=== PATIENT | female | born 1945 ===

== ENCOUNTER 2017-04-04 06:33 | Day surgery (SDC) | payer MEDICARE, OTHER ==
[2017-04-04] MEDS ORDERED: BALANCED SALT IRRIG SOLN COMB1 500 ML, GENTAMICIN SULFATE INJ 4 MG, EPINEPHRINE-PF 1:10... IO ONE ×3 (07:00)
[2017-04-04] MEDS ORDERED: CIPROFLOXACIN 0.3% OPHT DROP 2.5 ML BOTTLE ONE (07:02)
[2017-04-04] MEDS ORDERED: FLURBIPROFEN 0.03% OPHT DROP 2.5 ML BOTTLE ONE (07:02)
[2017-04-04] MEDS ORDERED: TROPICAMIDE 1% OPHT DROP 3 ML BOTTLE ONE ×2 (07:02→10:33)
[2017-04-04] MEDS ORDERED: PHENYLEPHRINE 2.5% OPHT DROP 2 ML BOTTLE ONE (07:03)
[2017-04-04] MEDS ORDERED: CYCLOPENTOLATE 1% OPHT DROP 2 ML BOTTLE ONE (07:03)
[2017-04-04] MEDS ORDERED: NEO/POLYMYX B/DEXAME OPHT OINT 3.5 GM TUBE ONE (07:54)
[2017-04-04] MEDS ORDERED: TIMOLOL MALEATE 0.5% OPHT DROP 5 ML BOTTLE ONE (07:54)
[2017-04-04] MEDS ORDERED: TETRACAINE HCL 0.5% OPHT DROP 2 ML BOTTLE ONE (07:54)
[2017-04-04] MEDS ORDERED: MOXIFLOXACIN HCL 3 ML OPHT DROPS ONE (07:54)
[2017-04-04] MEDS ORDERED: LIDOCAINE-MPF 2% 5 ML VIAL ONE (07:54)
[2017-04-04] MEDS ORDERED: LIDOCAINE HCL-MPF 1% 5 ML VIAL ONE (07:55)
[2017-04-04] MEDS ORDERED: BUPIVACAINE PF 0.5% 30 ML VIAL ONE (07:55)
[2017-04-04] MEDS ORDERED: HYALURONATE SODIUM 8.5 MG/0.85 ML DISP.SYRIN ONE (07:55)
[2017-04-04] MEDS ORDERED: HYALURONIDASE,OVINE 200 UNITS/ML VIAL ONE (07:55)
[2017-04-04] MEDS ORDERED: ACETYLCHOLINE CHLORIDE 1% OPHT 1 EA KIT ONE (07:55)
[2017-04-04] MEDS ORDERED: EPINEPHRINE 1 MG/1 ML AMP ONE (07:55)
[2017-04-04] MEDS ORDERED: BALANCED SALT IRRIG SOLN COMB2 15 ML IRRIG.SOLN ONE (07:55)
[2017-04-04] MEDS ORDERED: HYALURONATE SODIUM 12.8 MG/0.8 ML DISP.SYRIN ONE ×2 (07:56→09:11)
[2017-04-04] MEDS ORDERED: TRYPAN BLUE 0.5 ML DISP.SYRIN ONE (08:27)
[2017-04-04] MEDS ORDERED: FENTANYL CITRATE 100 MCG/2 ML AMPUL ONE (08:30)
[2017-04-04] MEDS ORDERED: BALANCED SALT IRRIG SOLN COMB1 0 ML ONE (09:11)
[2017-04-04] MEDS ORDERED: ACETAMINOPHEN 325 MG TABLET ONE (10:22)
== END 2017-04-04 10:45 | disposition home or self-care (01) ==
LOC: DS 06:33
PROVIDERS: ATTEND Ophthalmology
DX: H26.9 Unspecified cataract (principal); I48.0 Paroxysmal atrial fibrillation; M19.90 Unspecified osteoarthritis, unspecified site; I35.1 Nonrheumatic aortic (valve) insufficiency; E78.5 Hyperlipidemia, unspecified; I50.32 Chronic diastolic (congestive) heart failure
CPT/HCPCS: A4663; J0171; J1580; J3010; J3471; J3490; J7120; J7321; J8499; Q9968; V2632

== ENCOUNTER 2017-07-04 06:38 | Day surgery (SDC) | payer MEDICARE, OTHER ==
[2017-07-04] MEDS ORDERED: ONDANSETRON 4 MG/2 ML VIAL IV ONE (06:39)
[2017-07-04] MEDS ORDERED: FLURBIPROFEN 0.03% OPHT DROP 2.5 ML BOTTLE ONE (06:43)
[2017-07-04] MEDS ORDERED: TROPICAMIDE 1% OPHT DROP 3 ML BOTTLE ONE (06:44)
[2017-07-04] MEDS ORDERED: CYCLOPENTOLATE 1% OPHT DROP 2 ML BOTTLE ONE (06:44)
[2017-07-04] MEDS ORDERED: PHENYLEPHRINE 2.5% OPHT DROP 2 ML BOTTLE ONE (06:44)
[2017-07-04] MEDS ORDERED: CIPROFLOXACIN 0.3% OPHT DROP 2.5 ML BOTTLE ONE (06:44)
[2017-07-04] MEDS ORDERED: MOXIFLOXACIN HCL 3 ML OPHT DROPS ONE (06:57)
[2017-07-04] MEDS ORDERED: NEO/POLYMYX B/DEXAME OPHT OINT 3.5 GM TUBE ONE (06:58)
[2017-07-04] MEDS ORDERED: TETRACAINE HCL 0.5% OPHT DROP 2 ML BOTTLE ONE (06:58)
[2017-07-04] MEDS ORDERED: TIMOLOL MALEATE 0.5% OPHT DROP 5 ML BOTTLE ONE (06:58)
[2017-07-04] MEDS ORDERED: LIDOCAINE-MPF 2% 5 ML VIAL ONE (06:58)
[2017-07-04] MEDS ORDERED: HYALURONATE SODIUM 12.8 MG/0.8 ML DISP.SYRIN ONE (06:59)
[2017-07-04] MEDS ORDERED: HYALURONIDASE,OVINE 200 UNITS/ML VIAL ONE (06:59)
[2017-07-04] MEDS ORDERED: BUPIVACAINE PF 0.5% 30 ML VIAL ONE (06:59)
[2017-07-04] MEDS ORDERED: ACETYLCHOLINE CHLORIDE 1% OPHT 1 EA KIT ONE (06:59)
[2017-07-04] MEDS ORDERED: BALANCED SALT IRRIG SOLN COMB2 15 ML IRRIG.SOLN ONE (06:59)
[2017-07-04] MEDS ORDERED: HYALURONATE SODIUM 8.5 MG/0.85 ML DISP.SYRIN ONE (06:59)
[2017-07-04] MEDS ORDERED: BALANCED SALT IRRIG SOLN COMB1 500 ML, EPINEPHRINE-PF 1:1000 0.5 MG IO ONE ×2 (07:00)
[2017-07-04] MEDS ORDERED: TRYPAN BLUE 0.5 ML DISP.SYRIN ONE (08:10)
[2017-07-04] MEDS ORDERED: FENTANYL CITRATE 100 MCG/2 ML AMPUL ONE ×2 (08:19→08:42)
[2017-07-04] MEDS ORDERED: MIDAZOLAM HCL 2 MG/2 ML VIAL ONE (08:19)
[2017-07-04] MEDS ORDERED: BALANCED SALT IRRIG SOLN COMB1 0 ML ONE (09:20)
[2017-07-04] MEDS ORDERED: ACETAMINOPHEN 325 MG TABLET ONE (10:18)
== END 2017-07-04 23:59 | disposition home or self-care (01) ==
LOC: DS 06:38
PROVIDERS: ATTEND Ophthalmology
DX: H25.12 Age-related nuclear cataract, left eye (principal); I48.91 Unspecified atrial fibrillation; M47.812 Spondylosis without myelopathy or radiculopathy, cervical region; Z98.890 Other specified postprocedural states; E78.5 Hyperlipidemia, unspecified; I11.0 Hypertensive heart disease with heart failure; I50.9 Heart failure, unspecified; Z79.899 Other long term (current) drug therapy
CPT/HCPCS: 66982; A4663; J0171; J2250; J2405; J3010 ×2; J3471; J3490 ×2; J7120; J7321 ×2; Q9968; V2632